=== PATIENT | male | born 1950 | race Caucasian/White ===

== ENCOUNTER → 2019-01-03 | Outpatient (CLI) | payer MEDICARE, OTHER | LOC: COL.LAB 10:41 | DX: Z01.812 Encounter for preprocedural laboratory examination (principal) ==

== ENCOUNTER 2023-12-27 10:21 | Day surgery (SDC) | payer MEDICARE, OTHER ==
[~2023-12-27] VITALS: Ht 180.3 cm; Wt 85.7 kg
[~2023-12-27 10:21] MED LIST: LR 1,000 ML IV SCH
[2023-12-27] MEDS ORDERED: LOPRESSOR 225 MG/TAB PO (11:11)
[2023-12-27] MEDS ORDERED: LIPITOR 40MG TA40 MG PO (11:11)
[2023-12-27] MEDS ORDERED: PRIL40 PO (11:11)
[2023-12-27] MEDS ORDERED: SYNTHROID0.112 MG/T (11:12)
[2023-12-27] MEDS ORDERED: ASPIRIN E.C. 8181 MG PO (11:12)
[2023-12-27] MEDS ORDERED: Indocyanine Green 12.5 MG in Water For Injection,Sterile 2.5 ML IV ONE (11:30)
[2023-12-27] MEDS ORDERED: Atracurium 50 MG/5 ML VIAL IV ONE (11:58)
[2023-12-27] MEDS ORDERED: fentaNYL 50 MCG/ML 5 ML VIAL ONE (12:05)
[2023-12-27] MEDS ORDERED: Lidocaine PF 2% (20 MG/ML) 5 ML VIAL ONE (12:05)
[2023-12-27] MEDS ORDERED: NORCO 325 MG-51 TAB PO (12:33)
[2023-12-27] MEDS ORDERED: dexAMETHasone 10 MG/ML VIAL ONE (12:42)
[2023-12-27] MEDS ORDERED: Ondansetron 4 MG/2 ML VIAL ONE (12:42)
[2023-12-27] MEDS ORDERED: Glycopyrrolate 0.2 MG/ML 1 ML VIAL ONE (12:47)
[2023-12-27] MEDS ORDERED: HYDROmorphone 2 MG/1 ML VIAL IV PRN (13:00)
[2023-12-27] MEDS ORDERED: hydrALAZINE 20 MG/ML 1 ML VIAL IV PRN (13:00)
[2023-12-27] MEDS ORDERED: fentaNYL 50 MCG/ML 2 ML VIAL IV PRN (13:00)
[2023-12-27] MEDS ORDERED: droPERidol 2.5 MG/ML 2 ML VIAL IV PRN (13:00)
[2023-12-27] MEDS ORDERED: Ondansetron 4 MG/2 ML VIAL IV PRN ×2 (13:00→14:00)
[2023-12-27] MEDS ORDERED: Meperidine 50 MG/ML 1 ML VIAL IV PRN (13:00)
[2023-12-27] MEDS ORDERED: Ketorolac 30 MG/ML VIAL ONE (13:33)
[2023-12-27] MEDS ORDERED: LR 1,000 ML IV ONE (13:44)
[2023-12-27 14:29] VITALS: BP 163/81; PULSE 57; TEMP 97.5
[2023-12-27 14:40] VITALS: BP 150/83; PULSE 69; TEMP 97.3
--- NOTE | 2023-12-27 14:40 | NUR ---
PATIENT RETURNED TO ROOM 6 VIA CART, ALERT AND ORIENTED X3. DENIES PAIN, NAUSEA AND SHORTNESS OF BREATH. BREATHING REGULAR AND UNLABORED ON ROOM AIR. SKIN WARM AND DRY. SEE CHART FOR VITALS. NURSE HANDOFF COMPLETED IN ROOM. 4 BANDAIDS PRESENT TO LOWER ABDOMEN. BANDAIDS CLEAN, DRY AND INTACT. ABDOMEN SOFT AND FLAT. LEFT FOREARM IV IN PLACE. PATIENT HAD WATER AND APPLESAUCE. BOTH FOOD AND DRINK TOLERATED WELL. SPOUSE, TRUPTI, PRESENT IN ROOM. CALL LIGHT IN REACH.
[2023-12-27 14:45] VITALS: BP 160/70; PULSE 55
[2023-12-27 14:52] VITALS: TEMP 98
--- NOTE | 2023-12-27 14:54 | NUR ---
1046 PT AMBULATORY TO BAY 6 WITH A STEADY GAIT, BREATHING EVEN AND UNLABORED. PT IS ALERT AND ORIENTED. CONSENTS REVIEWED AND SIGNED BY PT. IV ESTABLISHED, LR INFUSING VIA GRAVITY AT [facility]. CALL LIGHT IN REACH. WARM BLANKET PROVIDED.
[2023-12-27 15:00] VITALS: BP 153/79; PULSE 53
[2023-12-27 15:15] VITALS: BP 156/72; PULSE 53
--- NOTE | 2023-12-27 15:40 | NUR ---
1534: DISCHARGE TEACHING COMPLETED WITH PRINTED EDUCATION AND INSTRUCTIONS SENT HOME WITH PATIENT. FOLLOW UP APPOINTMENT DATE, TIME AND LOCATION COMMUNICATED TO PATIENT AND SPOUSE. PATIENT AND TRUPTI VERBALIZED UNDERSTANDING OF TEACHING. 1538: PATIENT AMBULATED TO RESTROOM AND VOIDED WITHOUT DIFFICULTY. 1539: PATIENT RATES PAIN TOLERABLE 2/10 TO ABDOMEN. DENIES INTERVENTIONS. TOLERATING FOOD AND DRINK. IV REMOVED. GAUZE AND COBAN PLACED OVER SITE. 1540: PATIENT DISCHARGED HOME WITH SPOUSE, TRUPTI, TRANSPORT.
== END 2023-12-27 15:40 | disposition home or self-care (01) ==
LOC: SDCO 10:21
DX: R10.11 Right upper quadrant pain (principal); K80.10 Calculus of gallbladder with chronic cholecystitis without obstruction; K21.9 Gastro-esophageal reflux disease without esophagitis; Z79.899 Other long term (current) drug therapy; Z95.1 Presence of aortocoronary bypass graft
CPT/HCPCS: J0690; J1100; J1170; J1885; J2405; J2704; J3010; J7120